=== PATIENT | male | born 2000 | race Caucasian/White ===

== ENCOUNTER → 2021-06-23 10:33 | Outpatient (CLI) | payer BC, SELFPAY ==
[2021-06-23 19:56] LABS: COVID19 - ORCAS (NP or Nasal) Negative (Negative)
== END ==
PROVIDERS: Visit Provider Physician Assistant
DX: Z20.822 Contact with and (suspected) exposure to COVID-19 (principal)
CPT/HCPCS: U0003

== ENCOUNTER → 2024-06-15 13:39 | Outpatient (CLI) | payer OTHER, SELFPAY ==
--- NOTE | 2024-06-15 13:41 | DI.ECHO.S_ITS ---
[facility] : : [address] : : [place] : : [id number] : : Phone: [phone] Echocardiogram Report + + :Name: LORRI COBIAN Study Date: 06/15/2024 Height: 71 in : :Hospital ReadingLocation: Weight: 230 lb : : Gender: Male BSA: 2.2 m2 : :: 2000 Age: 24 yrs BP: 185/85 mmHg: :Reason For Study: HEART MURMUR : :Ordering Physician: YESSI AVALOS Performed By: Lio Pulido : :Referring: YESSI AVALOS : + + Interpretation Summary The ejection fraction is estimated to be 60-65%. Diastolic parameters suggest probable normal left ventricular diastolic function and normal filling pressures. The right ventricular systolic function is normal. The right ventricular systolic pressure is estimated to be at least 45 mmHg based on an estimated right atrial pressure of 3 mm Hg. There is mild tricuspid regurgitation. Procedure: A two-dimensional transthoracic echocardiogram with color flow and Doppler was performed. The study quality was technically good. There is no prior echocardiogram noted for this patient. The patient was in normal sinus rhythm during the exam. Left Ventricle: The left ventricle is normal in size. There is normal left ventricular wall thickness. There is no ventricular septal defect visualized. The ejection fraction is estimated to be 60-65%. There are no focal wall motion abnormalities. Diastolic parameters suggest probable normal left ventricular diastolic function and normal filling pressures. Right Ventricle: The right ventricle is mildly dilated. The right ventricular systolic function is normal. Atria: The left atrial size is normal. The right atrium is normal in size. There is no Doppler evidence for an interatrial shunt. Mitral Valve: The mitral valve leaflets appear mildly thickened, but open well. There is trace mitral regurgitation. Aortic Valve: The aortic valve is trileaflet. The aortic valve opens well. There is no aortic valve stenosis. No aortic regurgitation is present. Tricuspid Valve: The tricuspid valve leaflets are thin and pliable. There is mild tricuspid regurgitation. The right ventricular systolic pressure is estimated to be at least 45 mmHg based on an estimated right atrial pressure of 3 mm Hg. Pulmonic Valve: The pulmonic valve leaflets are thin and pliable; valve motion is normal. There is no pulmonic valvular regurgitation. Great Vessels: The aortic root is normal size. The dimensions of the ascending aorta are normal. The pulmonary artery is normal size. The IVC is of normal diameter and collapses greater than 50% with a sniff. This suggests a low right atrial pressure of 3 mm Hg. Pericardium/ Pleura There is no pericardial effusion. MMode/2D Measurements & Calculations LVIDd: 5.5 cm LVOT diam: 2.4 cm LVIDs: 3.7 cm Ao root diam: 3.1 cm FS: 32.4 % asc Aorta Diam: 2.8 cm EPSS: 0.77 cm Ao Arch Diam (Prox Trans): 1.8 cm IVSd: 0.89 cm LVPWd: 0.95 cm LV arredondo. diameter/BSA (cm/m^2): 2.5 LV sys. diameter/BSA (cm/m^2): 1.7 LA A2 area: 18.6 cm2 RA long axis: 5.5 cm LA A4 area: 23.4 cm2 RA area: 18.5 cm2 LA length (vol): 6.2 cm RA vol: 53.0 ml LA vol: 60.0 ml RA : 23.7 ml/m2 LA vol index: 26.8 ml/m2 IVC diam: 2.0 cm RVD1 (basal): 4.1 cm RVD2 (mid): 3.1 cm TAPSE: 2.6 cm Doppler Measurements & Calculations Ao V2 max: 192.6 cm/sec LVOT Max Sha: 138.0 cm/sec Ao V2 mean: 142.5 cm/sec LV V1 max P.6 mmHg Ao max P.8 mmHg LV V1 VTI: 25.9 cm Ao mean P.0 mmHg RASHIDA(I,D): 3.1 cm2 Ao V2 VTI: 36.3 cm RASHIDA(V,D): 3.1 cm2 sev ratio: 0.71 RASHIDA indexed to BSA (cm^2/m^2): 1.4 MV E max sha: 135.8 cm/sec TR max sha: 322.6 cm/sec MV A max sha: 86.4 cm/sec TR max P.6 mmHg MV E/A: 1.6 PA V2 max: 135.9 cm/sec Med Peak E' Sha: 11.4 cm/sec PA V2 mean: 102.4 cm/sec E/E' med: 11.9 PA mean P.6 mmHg Lat Peak E' Sha: 21.1 cm/sec PA pr(Accel): 29.3 mmHg E/E' lat: 6.4 E/e' average: 9.2 MV dec time: 0.23 sec [facility] 113.3 ml Reading Physician:03:12 PM
== END ==
PROVIDERS: PCP Physician Assistant; Referring Provider Physician Assistant; Visit Provider Physician Assistant
DX: I07.1 Rheumatic tricuspid insufficiency (principal); R01.1 Cardiac murmur, unspecified
CPT/HCPCS: 93306